=== PATIENT | female | born 1940 | race Caucasian/White ===

== ENCOUNTER 2019-03-01 17:40 | Inpatient (IN) | payer MEDICARE, OTHER ==
[2019-03-01 18:08] LABS: #Eosinphils 0.1 thou/uL (0.0-0.7); #Lymphocytes 1.9 thou/uL (1.20-3.40); #Monocytes 0.5 thou/uL (0.11-0.59); #Neutrophils 4.2 thou/uL (1.40-6.50); %Basophils 0.3 % (0.0-1.0); %Eosinophils 0.8 % (0.0-10.0); %Lymphocytes 28.8 % (21.0-51.0); %Neutrophils 62.1 % (42.0-75.0); Hemoglobin 12.2 g/dL (12.0-16.0); Mean Corpuscular HGB CONC 33.5 g/dL (32.0-36.0); Mean Corpuscular Hemoglobin 29.5 pg (27.0-31.0); Mean Platelet Volume 8.8 fL (7.4-10.4); Platelet Count 175 thou/uL (130-400); Red Blood Cell (RBC) Count 4.15 mill/uL (4.20-5.40); White Blood Cell (WBC) Count 6.7 thou/uL (4.8-10.8)
--- NOTE | 2019-03-01 18:20 | RAD ---
CHEST ONE VIEW: History: Shortness of breath. Dizziness. Comparison: None. FINDINGS: There are sternotomy wires. Atherosclerosis of the aorta. Upper normal cardiac silhouette. The pulmon teresa vessels are normal. Costophrenic angles are clear. Patchy interstitial opacities in the right inf rahilar region may represent infiltrate. Lungs are hyperinflated and chronic changes are suspected. N o pneumothorax or osseous abnormalities. IMPRESSION: 1. Upper normal cardiac silhouette. 2. Atherosclerosis. 3. Chronic changes of the superimposed infiltrate in the right infrahilar region. Continued surveilla nce is recommended. POS: ZORAIDA
[2019-03-01 18:30] LABS: ALT (SGPT) 47 U/L (8-55); AST (SGOT) 43 U/L (5-34); Albumin 4.1 g/dL (3.4-4.8); Alkaline Phosphatase 56 U/L (40-150); Anion Gap 14 mmol/L (10-20); BUN (Urea Nitrogen) 14 mg/dL (9.8-20.1); Bilirubin, Total 0.5 mg/dL (0.2-1.2); Calc. Creatinine Clearance 0 mL/min (70-130); Calcium 9.3 mg/dL (7.8-10.44); Carbon Dioxide 22 mmol/L (23-31); Chloride 102 mmol/L (98-107); Estimated GFR-MDRD 66; Globulin 2.5 g/dL (2.4-3.5); Glucose 147 mg/dL (83-110); Potassium 3.9 mmol/L (3.5-5.1); Protein, Total 6.6 g/dL (6.0-8.3); Sodium 134 mmol/L (136-145)
[2019-03-01] MEDS ORDERED: Nitroglycerin 2% Ointment 1 INCH/1 GM Packet ONE (18:31)
[2019-03-01] MEDS ORDERED: Aspirin Chewable 81 MG TAB ONE ×2 (18:53→19:02)
[2019-03-01 19:02] LABS: CKMB 1.3 ng/mL (0-6.6)
[2019-03-01] MEDS ORDERED: Furosemide 40 MG/4 ML VIAL ONE (20:18)
--- NOTE | 2019-03-01 20:57 | PDOC.FPRHP ---
- History of Present Illness Chief Complaint: Chest pain History of Present Illness: Ms. Otero presents to the ED with dizziness She reports that today she has frequently felt dizzy and lightheaded upon standing, improved when sitting or laying, associated with some GARCIA. She reports that she has had these symptoms for quite some time but only recently in the past 2-3 weeks have they become more frequent. [facility] similar complaints with medication changes including DCing digoxin and beginning scheduled lasix. She reports having US of carotids and Echo there along with other lab work and EKG. no stress test. She denies any chest pain, syncope, fever, palpitations, SOB, or edema recently ED Course: BNP, LA, trop, CBC, CXR, CMP, EKG Lasix, asa, nitro - Allergies/Adverse Reactions Allergies Allergy/AdvReac Type Severity Reaction Status Date / Time No Known Drug Allergies Allergy Verified 03/01/19 22:38 - Home Medications Medication Instructions Recorded Confirmed Type Aspirin [Ecotrin] 81 mg PO DAILY 03/01/19 03/01/19 History Fenofibrate 160 mg PO HS 03/01/19 03/01/19 History Furosemide [Lasix] 40 mg PO DAILY PRN 03/01/19 03/01/19 History Lisinopril 20 mg PO BID 03/01/19 03/01/19 History Sotalol HCl [Sotalol] 40 mg PO BID 03/01/19 03/01/19 History metFORMIN [Glucophage] 500 mg PO BID-WM 03/01/19 03/01/19 History - History PMHx:CAD, HTN, HLD, DMII PSHx: CABG in 1997 FHx: heart disease Social: former smoker, social alcohol, no drugs - Review of Systems General: denies: fever/chills Eyes: denies: vision changes Respiratory: reports: shortness of breath, exercise intolerance. denies: cough , congestion Cardiovascular: denies: chest pain, palpitation, edema Gastrointestinal: denies: nausea, vomiting, diarrhea, constipation Genitourinary: denies: dysuria Skin: denies: rashes, lesions Musculoskeletal: denies: pain, tenderness Neurological: reports: syncope. denies: numbness, weakness - Vital signs BP: 191/97, Pulse: 97, Resp: 20, Temp: 98.4 (Oral), Pain: 1, O2 sat: 97 on Room Air - Physical Exam Constitutional: NAD, awake, alert and oriented HEENT: normocephalic and atraumatic, grossly normal vision, grossly normal hearing Neck: supple, trachea midline, no bruits Chest: no-tender to palpation, no lesions Heart: normal S1/S2 (regularly irregular rhythm) Lungs: CTAB, no respiratory distress, no wheezing, no retractions Abdomen: soft, non-tender, bowel sounds present Musculoskeletal: normal structure, normal tone Neurological: no focal deficit, CN II-XII intact Skin: no rash/lesions Heme/Lymphatic: no unusual bruising or bleeding Psychiatric: normal mood and affect FMR H&P: Results - Labs Result Diagrams: 03/01/19 17:59 03/01/19 17:59 Lab results: WBC 6.7 thou/uL (4.8-10.8) 03/01/19 17:59 Hgb 12.2 g/dL (12.0-16.0) 03/01/19 17:59 Hct 36.5 % (36.0-47.0) 03/01/19 17:59 MCV 88.0 fL (78.0-98.0) 03/01/19 17:59 Plt Count 175 thou/uL (130-400) 03/01/19 17:59 Neutrophils % 62.1 % (42.0-75.0) 03/01/19 17:59 Sodium 134 mmol/L (136-145) L 03/01/19 17:59 Potassium 3.9 mmol/L (3.5-5.1) 03/01/19 17:59 Chloride 102 mmol/L (98-107) 03/01/19 17:59 Carbon Dioxide 22 mmol/L (23-31) L 03/01/19 17:59 BUN 14 mg/dL (9.8-20.1) 03/01/19 17:59 Creatinine 0.83 mg/dL (0.6-1.1) 03/01/19 17:59 Glucose 147 mg/dL (83-110) H 03/01/19 17:59 Lactic Acid 1.6 mmol/L (0.5-2.2) 03/01/19 18:33 Calcium 9.3 mg/dL (7.8-10.44) 03/01/19 17:59 Total Bilirubin 0.5 mg/dL (0.2-1.2) 03/01/19 17:59 AST 43 U/L (5-34) H 03/01/19 17:59 ALT 47 U/L (8-55) 03/01/19 17:59 Alkaline Phosphatase 56 U/L (40-150) 03/01/19 17:59 CK-MB (CK-2) 1.3 ng/mL (0-6.6) 03/01/19 18:00 B-Natriuretic Peptide 639.7 pg/mL (0-100) H 03/01/19 18:00 Serum Total Protein 6.6 g/dL (6.0-8.3) 03/01/19 17:59 Albumin 4.1 g/dL (3.4-4.8) 03/01/19 17:59 FMR H&P: A/P - Problem List (1) Pre-syncope Current Visit: Yes Status: Acute (2) Elevated brain natriuretic peptide (BNP) level Current Visit: Yes Status: Acute Code(s): R79.89 - OTHER SPECIFIED ABNORMAL FINDINGS OF BLOOD CHEMISTRY (3) CAD (coronary artery disease) Current Visit: Yes Status: Acute Code(s): I25.10 - ATHSCL HEART DISEASE OF [place] CORONARY ARTERY W/O ANG PCTRS (4) HTN (hypertension) Current Visit: Yes Status: Acute Code(s): I10 - ESSENTIAL (PRIMARY) HYPERTENSION (5) HLD (hyperlipidemia) Current Visit: Yes Status: Acute Code(s): E78.5 - HYPERLIPIDEMIA, UNSPECIFIED (6) DMII (diabetes mellitus, type 2) Current Visit: Yes Status: Acute (7) Elevated troponin Current Visit: Yes Status: Acute Code(s): R74.8 - ABNORMAL LEVELS OF OTHER SERUM ENZYMES - Plan Pre-syncope - VSS, neuro exam grossly intact, previous evaluation performed at outside hospital - request records, likely related to bigeminy - orthostatics pending indeterminate troponin - initially elevated, continue to monitor - EKG, nitro for chest pain - stress in AM Elevated BNP - CXR wnl, no exam abnormalities to suggest fluid overload - continue home lasix - reported recent echo, request records CAD - hx of, continue home medications HTN - controlled, continue home meds - hold sotalol for stress test DMII - continue home meds - SSI, ACHS accu-checks Code: full PCP: ADELIA ppx: bipin dispo: admit to tele obs for continuous cardiac monitoring, stress in AM. further eval pending records from outside hospital FMR H&P: Upper Level - Pertinent history 78 yo female here for dizziness, lightheadedness that started around lunch today. Was seen in the past couple weeks at [facility] for similar symptoms. Had head imaging was well as US of neck and heart, per patient. Recent medication change, stopping digoxin and starting lasix. Patient lives in [place] and is established in that area with physicians. Denies CP, syncope. - Pertinent findings 153/93 HR: 80 TEMP: 98.3 RR: 19 98% on RA Labs/imaging reviewed, trop 0.031; BNP 640 GEN: NAD, AOx3 CARD: irreg, no mgr PULM: CTAB EXT: no cyanosis or edema - Plan Date/Time: 03/01/192054 I, Brendan Mojica DO, have evaluated this patient and agree with findings/plan as outlined by university intern resident. Pertinent changes/additions are listed here. #near syncopal episode -sounds like she has had work up for this within the past 2 weeks -request records from that hospital -monitor on tele -based on history, there is concern for cardiac involvement, so we will trend trops and order stress test in the morning #bigeminy on EKG #elevated BMP -request records -no SOB at this time -continue home lasix and adjust as needed #CAD #HTN #DMII Addendum - Attending - Attending Attestation Date/Time: 03/01/19 2310 I personally evaluated the patient and discussed the management with Dr. Fowler and Dr. Mojica I agree with the History, Examination, Assessment and Plan documented above with any addition or exceptions noted below. 78 yo female with history of CAD presents for evaluation of pre-syncope. Patient with progressive dizziness and presyncope over the past month. Recently worked up at outside hospital. Has follow up visit scheduled with vascular surgeon. Will admit to tele obs. Noted to have arrhythmia on EKG. Patient unsure of history. Currently on beta solo. Asymptomatic at present. Records from outside hospital requested. Will order stress for AM. Patient confirmed this not done at outside facility. Consult cards in AM vs CV surg based on findings and records. Niki
[2019-03-01 21:29] LABS: Troponin I 0.027 ng/mL (< 0.028)
[2019-03-01] MEDS ORDERED: Ondansetron PF 4 MG/2 ML Vial IVP PRN (21:34)
[2019-03-01] MEDS ORDERED: Ondansetron ODT 4 MG TAB SL PRN (21:34)
[2019-03-01 21:45] VITALS: BMI 23.2
[2019-03-01] MEDS ORDERED: Nitroglycerin 0.4 MG TAB (25 Tab Bottle) PO PRN (21:55)
[2019-03-01] MEDS ORDERED: Acetaminophen 325 MG TAB PO PRN (21:55)
[2019-03-01] MEDS ORDERED: Dextrose 5% in Water 1,000 ML IV PRN (21:55)
[2019-03-01] MEDS ORDERED: HumaLOG 300 UNITS/3 ML VIAL SC PRN ×2 (21:55)
[2019-03-01] MEDS ORDERED: Dextrose 50% Abboject 50 ML SYRINGE SLOW IVP PRN (21:55)
[2019-03-01] MEDS ORDERED: Furosemide 40 MG TAB PO PRN (23:04)
[2019-03-01] MEDS ORDERED: Lisinopril 20 MG TAB PO SCH (23:59)
[2019-03-02 01:16] LABS: Troponin I 0.019 ng/mL (< 0.028)
[2019-03-02] MEDS ORDERED: ADENOSINE 60 MG/20 ML VIAL ONE (09:48)
--- NOTE | 2019-03-02 11:01 | NM ---
NM Cardiac Stress W EF WF History: [Chest pain] Comparison: None. Findings: Stress and rest was performed after the intravenous administration of 32 and 11 mCi technet ium 99m sestamibi, respectively. The exam was performed using the adenosine protocol. There is a large anteroseptal scar. No periscar ischemia. There is dyskinesia of the septum. Calculated ejection fraction measures 32%. Impression: Large anteroseptal scar without margaux-infarct ischemia. Septal dyskinesia with calculated ejection fraction of 32%.
[2019-03-02] MEDS ORDERED: hydrALAZINE 20 MG/ML VIAL SLOW IVP PRN (11:31)
[2019-03-02] MEDS ORDERED: hydrALAZINE 20 MG/ML VIAL SLOW IVP SCH (11:45)
[2019-03-02] MEDS: Enoxaparin Sodium 40 MG/0.4 ML SYRINGE SC SCH (11:50)
[2019-03-02] MEDS: metFORMIN 500 MG TAB PO SCH ×2 (11:50→17:09)
[2019-03-02] MEDS: Aspirin 81 mg Enteric Coated Tablet PO SCH (11:50)
[2019-03-02] MEDS: Lisinopril 20 MG TAB PO SCH ×2 (11:50→20:55)
--- NOTE | 2019-03-02 11:51 | PDOC.FM ---
- Subjective Subjective: PRABHAKAR overnight. Pt reports she is not having any CP, SOB. Does report persistent dizziness that improves when lying down. She had a stress this am that showed akinesis of septum and estimated EF of 32%. She remains in bigeminy. Denies palpitations. - Objective MAR Reviewed: Yes Vital Signs & Weight: Vital Signs (12 hours) Temp Pulse Resp BP BP BP Pulse Ox 03/02/19 11:04 97.8 F 94 171/79 H 221/109 H 197/79 H 97 03/02/19 04:18 96 03/02/19 04:15 98.0 F 94 14 162/85 H 190/61 H 143/83 H 94 L Weight Weight 54.295 kg I&O: 03/01/19 03/02/19 03/03/19 06:59 06:59 06:59 Intake Total 390 Output Total 1000 Balance -610 Result Diagrams: 03/06/19 04:33 03/06/19 04:33 Phys Exam - Physical Examination Constitutional: NAD HEENT: PERRLA, sclera anicteric Neck: no nodes, no JVD Respiratory: no wheezing, no rales, no rhonchi, clear to auscultation bilateral Cardiovascular: no rub, irregular NERI 3/6 Gastrointestinal: soft, non-tender, positive bowel sounds Musculoskeletal: no edema, pulses present Neurological: non-focal, moves all 4 limbs Skin: no rash Dx/Plan (1) Pre-syncope Status: Acute (2) CAD (coronary artery disease) Code(s): I25.10 - ATHSCL HEART DISEASE OF [place] CORONARY ARTERY W/O ANG PCTRS Status: Acute (3) DMII (diabetes mellitus, type 2) Status: Acute (4) Elevated brain natriuretic peptide (BNP) level Code(s): R79.89 - OTHER SPECIFIED ABNORMAL FINDINGS OF BLOOD CHEMISTRY Status : Acute (5) HLD (hyperlipidemia) Code(s): E78.5 - HYPERLIPIDEMIA, UNSPECIFIED Status: Acute (6) HTN (hypertension) Code(s): I10 - ESSENTIAL (PRIMARY) HYPERTENSION Status: Acute - Plan Plan: Pre-syncope - records pending - orthostatics negative - Stress showe scar and some akinesis - cardiology has been consulted - awaiting records from [facility] with recent echo results indeterminate troponin - down trended Elevated BNP - CXR wnl, no exam abnormalities to suggest fluid overload - continue home lasix - echo results pending - stress ef estimated @ 32% CAD - hx of, continue home medications HTN - elevated - hydralazine added prn - give one time hydralazine this am DMII - continue home meds - SSI, ACHS accu-checks Code: full PCP: OOT ppx: lovenox dispo: Cont monitoring and consult cardiology. Await recommendations. Addendum - Attending - Attending Attestation Date/Time: 03/08/19 0718 I personally evaluated the patient and discussed the management with Dr. Avalos on 03/02/19. I agree with the History, Examination, Assessment and Plan documented above with any addition or exceptions noted below. No pre-syncopal symptoms. Continues in bigeminy. Awaiting records to determine if further intervention needed. If they don't arrive, Cards may expedite our own w/u.
--- NOTE | 2019-03-02 17:15 | EKG ---
Test Reason : Blood Pressure : / mmHG Vent. Rate : 088 BPM Atrial Rate : 088 BPM P-R Int : 196 ms QRS Dur : 128 ms QT Int : 386 ms P-R-T Axes : 003 -59 120 degrees QTc Int : 467 ms Sinus rhythm with frequent Premature ventricular complexes in a pattern of bigeminy Left ventricular hypertrophy with QRS widening and repolarization abnormality Anterolateral infarct (cited on or before 01-MAR-2019) Abnormal ECG When compared with ECG of 01-MAR-2019 18:07, (Unconfirmed) No significant change was found Confirmed by DR. Lachelle WILLIS ([id number]) on 03/02/2019 5:14:56 PM Referred By: BILLY HALE Confirmed By:DR. Lachelle WILLIS
--- NOTE | 2019-03-02 20:10 | CON ---
DATE OF CONSULTATION: REASON FOR CONSULTATION: Abnormal stress study. HISTORY OF PRESENT ILLNESS: Ms. Otero is a pleasant 78-year-old woman with previous history of underlying coronary artery disease. She states she had an MA in the late 90s. She underwent bypass surgery. She has been worked up for dizziness as an outpatient. She states she was passing through when developed dizziness. Her fha underwriter is in [place]. She was subsequently admitted. She was having bigeminy. She underwent a noninvasive stress study that showed a scar with no ischemia present. Scar was noted to the anteroseptal region with LVEF 32%. She states she has not been told in the past she had a cardiomyopathy, although states after her heart attack she had a large area of scar that did have a healed prior to proceeding with bypass surgery. PAST MEDICAL HISTORY: CAD, status post MA, hypertension, hyperlipidemia, and diabetes mellitus. SOCIAL HISTORY: No current tobacco or alcohol use. FAMILY HISTORY: Negative for CAD. HOME MEDICATIONS: 1. Sotalol. 2. Metformin. 3. Lisinopril. 4. Lasix. 5. Fenofibrate. 6. Aspirin. REVIEW OF SYSTEMS: A 10-point review of systems is reviewed and as well negative. PHYSICAL EXAMINATION: VITAL SIGNS: Blood pressure 166/104, pulse 52, and temp 99.1. GENERAL: Patient is a pleasant female who is in no acute distress. The patient appears their stated age. NEUROLOGIC: The patient is alert and oriented x3 with no focal neurologic deficits. HEENT: Sclerae without icterus. Mouth has moist mucous membranes with normal pallor. NECK: No JVD. Carotid upstroke brisk. No bruits bilaterally. LUNGS: Clear to auscultation with unlabored respirations. BACK: No scoliosis or kyphosis. CARDIAC: Regular rate and rhythm with normal S1 and S2. No S3 or S4 noted. No significant rubs, murmurs, thrills, or gallops noted throughout the precordium. PMI is not displaced. There is no parasternal heave. ABDOMEN: Soft, nontender, nondistended. No peritoneal signs present. No hepatosplenomegaly. No abnormal striae. EXTREMITIES: 2+ femoral and 2+ dorsalis pedis pulses. No cyanosis, clubbing, or edema. SKIN: No gross abnormalities. PERTINENT LABORATORY DATA: Hemoglobin 12.2. Troponin 0.027. IMPRESSION: 1. Dizziness. 2. Coronary artery disease. 3. Status post bypass surgery. 4. Abnormal stress study. RECOMMENDATIONS: Ms. Otero's symptoms may be related to a PVCs. She is currently on sotalol. We will try and obtain previous records. Her LVEF is estimated at 32%, but likely underestimated due to PVCs. She is currently asymptomatic. We cannot obtain past records, would then recommend an echo Doppler to assess LVEF. May consider stopping sotalol. Job ID: [id number]
[2019-03-02] MEDS: Sotalol HCl 80 MG TAB PO SCH (20:54)
[2019-03-02] MEDS: Fenofibrate Nanocrystallized 145 MG TAB PO SCH (20:55)
--- NOTE | 2019-03-03 06:18 | PDOC.CTH ---
Cardiology Progress Note - Subjective No complaints except dizziness noted. - Objective Vital Signs Temp Pulse Resp BP BP BP Pulse Ox 03/03/19 03:57 97.8 F 80 16 156/65 H 94 L 03/03/19 00:53 118/62 03/02/19 23:34 99.3 F 94 20 185/75 H 96 03/02/19 20:55 158/98 H 03/02/19 20:54 98 158/98 H 03/02/19 20:00 99.1 F 98 16 158/98 H 96 Weight 123 lb 9.6 oz 03/01/19 03/02/19 03/03/19 06:59 06:59 06:59 Intake Total 390 840 Output Total 1000 200 Balance -610 640 - Physical Examination General/Neuro: alert & oriented x3, NAD Neck: carotid US brisk, no JVD present Lungs: unlabored respirations Heart: PMI normal, RRR Abdomen: NT/ND, soft Extremities: + femoral B - Telemetry Telemetry Rhythm: bigeminy - Labs Result Diagrams: 03/01/19 17:59 03/01/19 17:59 Troponin/CKMB CK-MB (CK-2) 1.3 ng/mL (0-6.6) 03/01/19 18:00 Troponin I 0.019 ng/mL (< 0.028) 03/02/19 00:30 - Assessment/Plan Dizziness CAD s/p CABG Bigeminy Check outside echo Will discuss stopping sotalol and changing to amiodarone with EP vs ablation Recommend EP consult givne symptoms and continuos bigeminy
[2019-03-03] MEDS: Sotalol HCl 80 MG TAB PO SCH ×2 (09:11→19:35)
[2019-03-03] MEDS: Aspirin 81 mg Enteric Coated Tablet PO SCH (09:11)
[2019-03-03] MEDS: Lisinopril 20 MG TAB PO SCH ×2 (09:11→19:35)
[2019-03-03] MEDS: Enoxaparin Sodium 40 MG/0.4 ML SYRINGE SC SCH (09:12)
[2019-03-03] MEDS: metFORMIN 500 MG TAB PO SCH ×2 (09:12→17:44)
--- NOTE | 2019-03-03 11:10 | PDOC.FM ---
- Subjective Subjective: PRABHAKAR overnight. Pt reports persistent episodic dizziness. Remains in bigeminy. - Objective MAR Reviewed: Yes Vital Signs & Weight: Vital Signs (12 hours) Temp Pulse Resp BP BP BP BP 03/03/19 09:11 56 L 118/62 03/03/19 07:30 97.6 F 56 L 14 120/85 134/66 03/03/19 03:57 97.8 F 80 16 156/65 H 03/03/19 00:53 118/62 03/02/19 23:34 99.3 F 94 20 185/75 H BP Pulse Ox 03/03/19 09:11 03/03/19 07:30 127/61 96 03/03/19 03:57 94 L 03/03/19 00:53 03/02/19 23:34 96 Weight Weight 56.064 kg I&O: 03/02/19 03/03/19 03/04/19 06:59 06:59 06:59 Intake Total 390 840 240 Output Total 1000 200 Balance -610 640 240 Result Diagrams: 03/04/19 06:19 03/04/19 06:19 Phys Exam - Physical Examination Constitutional: NAD HEENT: PERRLA, sclera anicteric Neck: no nodes, no JVD Respiratory: no wheezing, no rales, no rhonchi, clear to auscultation bilateral Cardiovascular: no significant murmur, irregular Gastrointestinal: soft, non-tender, no distention, positive bowel sounds Musculoskeletal: no edema, pulses present Neurological: non-focal, moves all 4 limbs Psychiatric: normal affect Skin: no rash, normal turgor Dx/Plan (1) Pre-syncope Status: Acute (2) CAD (coronary artery disease) Code(s): I25.10 - ATHSCL HEART DISEASE OF [place] CORONARY ARTERY W/O ANG PCTRS Status: Acute (3) DMII (diabetes mellitus, type 2) Status: Acute (4) Elevated brain natriuretic peptide (BNP) level Code(s): R79.89 - OTHER SPECIFIED ABNORMAL FINDINGS OF BLOOD CHEMISTRY Status : Acute (5) HLD (hyperlipidemia) Code(s): E78.5 - HYPERLIPIDEMIA, UNSPECIFIED Status: Acute (6) HTN (hypertension) Code(s): I10 - ESSENTIAL (PRIMARY) HYPERTENSION Status: Acute - Plan Plan: Pre-syncope - records pending - orthostatics negative - Stress showe scar and some akinesis - cardiology has been consulted - awaiting records from [facility] with recent echo results which have unfortunately not arrived, as such will order echo - EP consulted per cardiology, will await recs indeterminate troponin resolved - down trended Elevated BNP - CXR wnl, no exam abnormalities to suggest fluid overload - continue home lasix - echo ordered in house - stress ef estimated @ 32% CAD - hx of, continue home medications HTN - elevated - hydralazine added prn - give one time hydralazine this am - sotalol continued DMII - continue home meds - SSI, ACHS accu-checks Code: full PCP: OOT ppx: lovenox dispo: Cont monitoring and await EP recs. Addendum - Attending - Attending Attestation Date/Time: 03/04/19 2157 I personally evaluated the patient and discussed the management with Dr. Avalos. I agree with the History, Examination, Assessment and Plan documented above with any addition or exceptions noted below. No cp/sob/n/v/f/c.
[2019-03-03] MEDS ORDERED: Polyethylene Glycol 3350 17 GM Packet PO PRN (18:16)
[2019-03-03] MEDS ORDERED: Senokot 8.6 MG TAB PO PRN (18:16)
[2019-03-03] MEDS ORDERED: Polyethylene Glycol 3350 17 GM Packet PO SCH (18:20)
[2019-03-03] MEDS: Fenofibrate Nanocrystallized 145 MG TAB PO SCH (19:35)
--- NOTE | 2019-03-03 22:13 | CON ---
DATE OF CONSULTATION: 03/03/2019 I am seeing Mrs. 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 Her problems are, 1. Near syncopal spell. 2. Nonsustained ventricular tachycardia with very frequent monomorphic premature ventricular contractions as well. 3. Chronic systolic congestive heart failure with ischemic cardiomyopathy. a. Remote history of silent myocardial infarction. b. History of cardiomyopathy, even pre and post bypass surgery. c. History of coronary artery bypass graft surgery in 1997. d. Current left ventricular ejection fraction at 32% by echocardiogram this admission. 4. Hypertension. 5. Hyperlipidemia. 6. Mild diabetes. 7. Chronic sotalol use. ALLERGIES: NONE NOTED. MEDICATIONS: At home, included: 1. Sotalol 40 mg twice a day. 2. Metformin. 3. Lisinopril. 4. Furosemide. 5. Fenofibrate. 6. Aspirin. SUBJECTIVE: Mrs. Otero is here after a dizzy spell. She was visiting town from [place] where she lives and got dizzy, lightheaded, and also had some dyspnea on exertion. She actually had DOA for 2 to 3 weeks, but recurring more frequent recently. She had recently discharged from [facility] for similar complaints, and she was started on Lasix. She denies passing out. She actually denies any chest pains. No fever, chills , or cough. No stroke-like symptoms. No neurological deficits. There is no PND or orthopnea. Rest of 12-point system otherwise unremarkable. PAST MEDICAL HISTORY: As above. SOCIAL HISTORY: The patient denies smoking, EtOH, or drug abuse. She lives in near [place] in [place]. FAMILY HISTORY: Negative for coronary artery disease. OBJECTIVE DATA: VITAL SIGNS: Blood pressure mostly 171/68, heart rate 80, respirations 20, and temperature 97.8 degrees Fahrenheit. PHYSICAL EXAMINATION: GENERAL: Alert and oriented woman, in no apparent distress. NECK: Supple. Jugular vein is slightly distended. Hepatojugular reflux is positive. CHEST: Coarse without crackles. HEART: Sounds are regular with occasional bigeminal ectopy heard. No murmur, but positive for S3 gallop. ABDOMEN: Benign. Bowel sounds positive. LOWER EXTREMITIES: Without edema, clubbing, or cyanosis. Pulses are adequate. NEUROLOGIC: The patient is nonfocal. MUSCULOSKELETAL: No joint swelling or deformity. SKIN: Without rash. DATABASE: EKG is reviewed. Initial EKG reveals sinus rhythm, rate of 96 beats per minute. QRS is narrow about 120 milliseconds. Frequent PVCs are noted, which are right bundle and left axis in morphology. Subsequent EKG is similar. Telemetry strips revealed frequent bigeminy and ectopy. LABORATORY DATA: White count 6.7, hemoglobin is 12.2, and platelet count is 175. Sodium 134, potassium 3.9, BUN is 14, and creatinine 0.83. AST and ALT are 43 and 47. Troponin I 0.031. BNP 639. The nuclear stress test from 03/19/2019, demonstrates LVEF 32%, large anteroseptal scar without ischemia, septal dyskinesia. ASSESSMENT AND PLAN: Mrs. Otero is a pleasant 78-year-old woman with history of congestive heart failure, likely ischemic cardiomyopathy, prior CABG and DC, who presented with progressive dizziness for which etiology is unclear, but she was noted to have very frequent premature ventricular contractions as well as runs of fast rapid heartbeats, considering ventricular tachycardia as noted. The premature ventricular contractions and medical tachycardia are different in morphology and also from the baseline. She also has mild fluid overload. She is taking p.o. diuretics for that. Her dizzy spell could be related to ventricular arrhythmias. By nuclear scan, she does not seem to have new ischemia, but a large anteroseptal scar is present, which is likely chronic, possibly harbors circuits for ventricular arrhythmia. We obtained records from [facility] where she was recently hospitalized. The echocardiogram was suggestive of [id number] Will obtain redo ECHO to evaluate LVEF. IF worsened to <=35% she may benefit from a pacemaker-defibrillator. IF LVEF35- 40%, may consider elctrophysiology study. Also, the frequent ventricular ectopy may be better served with further suppression with higher doise of sotalol after the ICD is in place. Alternatively, premature ventricular contraction ablation also could be considered, which could possibly improve her left ventricular systolic function as well. I discussed the case with dr Aguayo, who is planning an [facility] to re-evaluate coronary status. Job ID: [id number] [facility]
[2019-03-04] MEDS ORDERED: Sodium Chloride 0.9% 1,000 ML IV SCH (06:15)
[2019-03-04] MEDS ORDERED: Diazepam 5 MG TAB PO SCH (06:15)
[2019-03-04] MEDS ORDERED: Communication Order-Pharmacy FS SCH (06:15)
[2019-03-04] MEDS: Sotalol HCl 80 MG TAB PO SCH ×2 (06:24→20:22)
[2019-03-04 07:10] LABS: #Lymphocytes 1.5 thou/uL (1.20-3.40); #Monocytes 1.1 thou/uL (0.11-0.59); #Neutrophils 5.7 thou/uL (1.40-6.50); %Basophils 0.1 % (0.0-1.0); %Eosinophils 0.4 % (0.0-10.0); %Lymphocytes 17.5 % (21.0-51.0); %Monocytes 12.8 % (0.0-10.0); %Neutrophils 69.2 % (42.0-75.0); Hemoglobin 12.7 g/dL (12.0-16.0); Mean Corpuscular HGB CONC 34.2 g/dL (32.0-36.0); Mean Corpuscular Hemoglobin 29.9 pg (27.0-31.0); Mean Corpuscular Volume 87.4 fL (78.0-98.0); Platelet Count 176 thou/uL (130-400); RBC Distribution Width 13.7 % (11.5-14.5); Red Blood Cell (RBC) Count 4.25 mill/uL (4.20-5.40); White Blood Cell (WBC) Count 8.3 thou/uL (4.8-10.8)
[2019-03-04 07:35] LABS: ALT (SGPT) 22 U/L (8-55); AST (SGOT) 12 U/L (5-34); Albumin 3.8 g/dL (3.4-4.8); Alkaline Phosphatase 47 U/L (40-150); Anion Gap 12 mmol/L (10-20); BUN (Urea Nitrogen) 12 mg/dL (9.8-20.1); Bilirubin, Total 0.7 mg/dL (0.2-1.2); Calc. Creatinine Clearance 57 mL/min (70-130); Calcium 9.2 mg/dL (7.8-10.44); Carbon Dioxide 23 mmol/L (23-31); Chloride 105 mmol/L (98-107); Estimated GFR-MDRD 82; Globulin 2.6 g/dL (2.4-3.5); Glucose 128 mg/dL (83-110); Potassium 3.8 mmol/L (3.5-5.1); Protein, Total 6.4 g/dL (6.0-8.3); Sodium 136 mmol/L (136-145)
[2019-03-04] MEDS: metFORMIN 500 MG TAB PO SCH ×2 (08:16→17:39)
[2019-03-04] MEDS: Enoxaparin Sodium 40 MG/0.4 ML SYRINGE SC SCH (08:17)
[2019-03-04] MEDS: Aspirin 81 mg Enteric Coated Tablet PO SCH (08:17)
[2019-03-04] MEDS: Lisinopril 20 MG TAB PO SCH ×2 (08:17→20:22)
[2019-03-04] MEDS ORDERED: Fentanyl 100 MCG/2 ML VIAL ONE (09:01)
[2019-03-04] MEDS ORDERED: Midazolam HCl 2 mg/2 ml Vial ONE (09:01)
--- NOTE | 2019-03-04 09:05 | PDOC.FM ---
- Subjective Subjective: PRABHAKAR overnight. Pt remains in bigeminy. She denies overnight CP, dizziness, lighthededness, sob, NVDC, diaphoresis. - Objective MAR Reviewed: Yes Vital Signs & Weight: Vital Signs (12 hours) Temp Pulse Resp BP BP Pulse Ox 03/04/19 08:17 118/62 03/04/19 07:57 98.5 F 82 16 100/57 L 94 L 03/04/19 03:25 97.8 F 94 20 149/71 H 93 L Weight Weight 54.516 kg I&O: 03/03/19 03/04/19 03/05/19 06:59 06:59 06:59 Intake Total 840 1340 Output Total 200 Balance 640 1340 Result Diagrams: 03/04/19 06:03/04/19 06:19 Phys Exam - Physical Examination Constitutional: NAD HEENT: PERRLA, moist MMs, sclera anicteric Neck: no nodes, no JVD Respiratory: no wheezing, no rales, no rhonchi, clear to auscultation bilateral Cardiovascular: RRR, no significant murmur, no rub Gastrointestinal: soft, non-tender, no distention, positive bowel sounds Musculoskeletal: no edema, pulses present Neurological: non-focal, normal sensation, moves all 4 limbs Psychiatric: normal affect Skin: no rash, cap refill <2 seconds Dx/Plan (1) Pre-syncope Status: Acute (2) CAD (coronary artery disease) Code(s): I25.10 - ATHSCL HEART DISEASE OF [place] CORONARY ARTERY W/O ANG PCTRS Status: Acute (3) DMII (diabetes mellitus, type 2) Status: Acute (4) Elevated brain natriuretic peptide (BNP) level Code(s): R79.89 - OTHER SPECIFIED ABNORMAL FINDINGS OF BLOOD CHEMISTRY Status : Acute (5) HLD (hyperlipidemia) Code(s): E78.5 - HYPERLIPIDEMIA, UNSPECIFIED Status: Acute (6) HTN (hypertension) Code(s): I10 - ESSENTIAL (PRIMARY) HYPERTENSION Status: Acute - Plan Plan: Pre-syncope - cardiogenic - pt to have cath this am and placement of ICD pending cath results indeterminate troponin resolved - down trended - see above Elevated BNP - CXR wnl, no exam abnormalities to suggest fluid overload - continue home lasix - echo ordered in house - stress ef estimated @ 32% - pending cath this am CAD - hx of, continue home medications HTN - monitor - cardiology consulted - cont home medications DMII - continue home meds - SSI, ACHS accu-checks Code: full PCP: OOT ppx: reenox dispo: Cont monitoring await cath results and cards/EP recs. Addendum - Attending - Attending Attestation Date/Time: 03/04/19 4297 I personally evaluated the patient and discussed the management with Dr. Avalos. I agree with the History, Examination, Assessment and Plan documented above with any addition or exceptions noted below. I'm seeing her post-cath and she is doing well, no complaints of cp/sob/palps/n/ v/f/c or groin pain.
[2019-03-04] MEDS ORDERED: Sodium Chloride 0.9% 200 ML IV PRN (09:36)
[2019-03-04] MEDS ORDERED: Nitroglycerin 0.4 MG TAB (25 Tab Bottle) SL PRN (09:36)
[2019-03-04] MEDS ORDERED: Acetaminophen/Codeine 30-300mg Tablet PO PRN ×2 (09:36)
[2019-03-04] MEDS ORDERED: Iopamidol 370 76% 100 ML VIAL ONE (09:49)
[2019-03-04] MEDS: Sodium Chloride 0.9% 1,000 ML IV SCH ×2 (10:10→17:39)
--- NOTE | 2019-03-04 14:49 | PDOC.CTH ---
Cardiology Progress Note - Subjective EP PROGRESS NOTE: 03/04/19 Mrs. Otero presented to [facility] after a dizzy spell. She was visiting from [place] where she lives and got dizzy, lightheaded, and also had some dyspnea on exertion. She actually had DOA for 2 to 3 weeks, but recurring more frequent recently. She had recently discharged from [facility] for similar complaints, and she was started on Lasix. She denies heart racing, palpitations, chest pain/pressure, recurrent dizziness , pasingout. No fever, chills, or cough. No stroke-like symptoms. No neurological deficits. There is no PND or orthopnea. Rest of 12-point system otherwise unremarkable. - Objective Vital Signs Temp Pulse Resp BP BP Pulse Ox 03/04/19 12:00 97.7 F 82 16 133/65 94 L 03/04/19 08:17 118/62 03/04/19 08:00 94 L 03/04/19 07:57 98.5 F 82 16 100/57 L 94 L 03/04/19 03:25 97.8 F 94 20 149/71 H 93 L Weight 120 lb 3 oz 03/03/19 03/04/19 03/05/19 06:59 06:59 06:59 Intake Total 840 1340 Output Total 200 Balance 640 1340 - Physical Examination General/Neuro: alert & oriented x3, NAD Neck: carotid US brisk, no JVD present Lungs: CTA, unlabored respirations Heart: PMI normal, RRR, other: (frequent PVC) Abdomen: NT/ND, soft - Telemetry Telemetry Rhythm: SR frequent PVC - Labs Result Diagrams: 03/04/19 06:19 03/04/19 06:19 Troponin/CKMB CK-MB (CK-2) 1.3 ng/mL (0-6.6) 03/01/19 18:00 Troponin I 0.019 ng/mL (< 0.028) 03/02/19 00:30 - Assessment/Plan 1. Near syncopal spell. 2. Nonsustained ventricular tachycardia with very frequent monomorphic premature ventricular contractions as well. 3. Chronic systolic congestive heart failure with ischemic cardiomyopathy. a. Remote history of silent myocardial infarction. b. History of cardiomyopathy, even pre and post bypass surgery. c. History of coronary artery bypass graft surgery in 1997. d. Current left ventricular ejection fraction at 32% by echocardiogram this admission. 4. Hypertension. 5. Hyperlipidemia. 6. Mild diabetes. 7. Chronic sotalol use. - low dose, 40mg PO BID - Creat clearance 57mL/min (creat 0.69) -QT/QTc 354/447 ms by 12 lead on 03/01/19 Plan: C done today. Recommendation was for medical management. Awaiting report. Repeat Echo taken but awaiting report. If EF borderline, 35-40%, my plan is for EP study to see if she is inducible for ventricular arrhythmias and place Dual chamber ICD if she is. If EF severely reduced, <35%, recommend dual chamber ICD implant. Will await results as mentioned. She is scheduled for Saturday either way. 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 She may eventually require PVC/VT ablation which can be discussed/arranged as OP.
[2019-03-04] MEDS: Fenofibrate Nanocrystallized 145 MG TAB PO SCH (20:22)
[2019-03-05 00:32] LABS: Anion Gap 14 mmol/L (10-20); BUN (Urea Nitrogen) 8 mg/dL (9.8-20.1); Calc. Creatinine Clearance 58 mL/min (70-130); Calcium 9.2 mg/dL (7.8-10.44); Carbon Dioxide 19 mmol/L (23-31); Chloride 107 mmol/L (98-107); Estimated GFR-MDRD 83; Glucose 126 mg/dL (83-110); Potassium 4.1 mmol/L (3.5-5.1); Sodium 136 mmol/L (136-145)
--- NOTE | 2019-03-05 00:57 | PDOC.EVN ---
Event Note - Event Note Event Note: Subjective: Paged by nursing staff around midnight that patient was complaining of SOB. She had a cath procedure today and plan for ICD placement on Saturday. Her sats were reported to be 94% on RA. Residents went to evaluate patient who endorsed SOB that began earlier this afternoon and had gotten progressively worse. She also endorsed feeling like she was wheezing. She denied fever/chills , chest pain, palpitations or abdominal pain. Denies LE edema. ROS: per HPI Objective: Vitas: T: 97.7, HR: 82, RR: 16, O2 sats: 94% RA, BP: 133/65 PE: General: NAD, awake, alert, and oriented Cardio: RRR, no murmurs, rubs, or gallops Resp: CTAB, non labored breathing, no retractions Abd: non tender, non distended, + BS MSK: no swelling to LE A&P: - Ordered BNP, BMP, and CXR - BNP elevated from previously, CXR showing inc pulm vascular congestion - Will give one dose of lasix, 40mg IV
[2019-03-05] MEDS ORDERED: Furosemide 40 MG/4 ML VIAL SLOW IVP SCH (01:00)
[2019-03-05 03:18] LABS: Troponin I 0.014 ng/mL (< 0.028)
--- NOTE | 2019-03-05 06:13 | PDOC.CTH ---
Cardiology Progress Note - Objective Vital Signs Temp Pulse Resp BP Pulse Ox 03/05/19 04:00 98.1 F 102 H 20 138/67 93 L 03/05/19 02:48 95 03/04/19 19:35 98.1 F 90 18 127/70 95 Weight 122 lb 1 oz 03/03/19 03/04/19 03/05/19 06:59 06:59 06:59 Intake Total 840 1340 2125 Output Total 200 2700 Balance 640 1340 -575 - Physical Examination General/Neuro: NAD Neck: no JVD present Lungs: CTA, unlabored respirations Heart: PMI normal, RRR Abdomen: NT/ND, soft Extremities: + femoral B - Labs Result Diagrams: 03/04/19 06:19 03/05/19 00:06 Troponin/CKMB CK-MB (CK-2) 1.3 ng/mL (0-6.6) 03/01/19 18:00 Troponin I 0.014 ng/mL (< 0.028) 03/05/19 00:06 - Assessment/Plan Dizziness Bradycarida VT Severe CAD Pt with occluded LAD and severe stneosis of the subclavian artery occluded lad likely occurred in the [place] support measures EP planning on study tomorrow
--- NOTE | 2019-03-05 07:27 | RAD ---
XR Chest 1 View Portable History: [Shortness of breath] Comparison: Radiograph March 01, 2019 Findings: Pulmonary edema mildly improved. Heart size is normal. No pneumothorax. No significant effu antonio. No acute osseous abnormality. Ends calcifications of the aorta. Impression: Minimal significant improvement of pulmonary edema.
[2019-03-05] MEDS: Sotalol HCl 80 MG TAB PO SCH ×2 (10:19→22:06)
[2019-03-05] MEDS: metFORMIN 500 MG TAB PO SCH ×2 (10:20→18:08)
[2019-03-05] MEDS: Aspirin 81 mg Enteric Coated Tablet PO SCH (10:20)
[2019-03-05] MEDS: Enoxaparin Sodium 40 MG/0.4 ML SYRINGE SC SCH (10:20)
[2019-03-05] MEDS: Lisinopril 20 MG TAB PO SCH ×2 (10:20→22:05)
--- NOTE | 2019-03-05 10:42 | PDOC.FM ---
- Subjective Subjective: Pt developed SOB overnight. Had BNP that was elevated and CXR concerning for volume overload. Given IV lasix and symptoms resolved. This am she reports she feels great. IVF stopped. - Objective MAR Reviewed: Yes Vital Signs & Weight: Vital Signs (12 hours) Temp Pulse Resp BP BP BP Pulse Ox 03/05/19 10:20 118/62 03/05/19 10:19 108 H 03/05/19 10:17 96 03/05/19 08:23 97.6 F 108 H 16 127/61 96 03/05/19 04:00 98.1 F 102 H 20 138/67 93 L 03/05/19 02:48 95 Weight Weight 55.367 kg I&O: 03/04/19 03/05/19 03/06/19 06:59 06:59 06:59 Intake Total 1340 2125 Output Total 2700 Balance 1340 -575 Result Diagrams: 03/04/19 06:19 03/05/19 00:06 Phys Exam - Physical Examination Constitutional: NAD HEENT: PERRLA, sclera anicteric Neck: no nodes, no JVD Respiratory: no wheezing, no rales, no rhonchi, clear to auscultation bilateral Cardiovascular: no significant murmur, irregular Gastrointestinal: soft, non-tender, no distention, positive bowel sounds Musculoskeletal: no edema, pulses present Neurological: non-focal, moves all 4 limbs Psychiatric: normal affect Skin: no rash Dx/Plan (1) Pre-syncope Status: Acute (2) CAD (coronary artery disease) Code(s): I25.10 - ATHSCL HEART DISEASE OF [place] CORONARY ARTERY W/O ANG PCTRS Status: Acute (3) DMII (diabetes mellitus, type 2) Status: Acute (4) Elevated brain natriuretic peptide (BNP) level Code(s): R79.89 - OTHER SPECIFIED ABNORMAL FINDINGS OF BLOOD CHEMISTRY Status : Acute (5) HLD (hyperlipidemia) Code(s): E78.5 - HYPERLIPIDEMIA, UNSPECIFIED Status: Acute (6) HTN (hypertension) Code(s): I10 - ESSENTIAL (PRIMARY) HYPERTENSION Status: Acute - Plan Plan: Pre-syncope - cardiogenic - await EP and cardiology recommendations indeterminate troponin resolved -resolved Elevated BNP -Ech showed EF 30-35%, pt will undergo EP prcedure today or tomorrow, will await recs - will need optimum medical therapy PT DC, await EP prcedure/recs CAD - hx of, continue home medications HTN - monitor - cardiology consulted - cont home medications DMII - continue home meds - SSI, ACHS accu-checks Code: full PCP: ADELIA ppx: bipin dispo: Will await cardiology and EP recs, plan for EP prcedure today vs tomorrow. Addendum - Attending - Attending Attestation Date/Time: 03/05/19 3118 I personally evaluated the patient and discussed the management with Dr. Avalos. I agree with the History, Examination, Assessment and Plan documented above with any addition or exceptions noted below.
--- NOTE | 2019-03-05 13:13 | STRESS ---
Acquisition Time: 2019-03-02 09:13:50 Total Exercise Time: 00:04:00 Test Indications: CHEST PAIN Medications: Protocol: ADENOSINE Max HR: 098 BPM 69% of Pred: 141 BPM Max BP: 172/064 mmHG Max Work Load: 1.0 METS RESTING ECG: NORMAL SINUS RHYTHM AT 91 BPM WITH LEFT ANTERIOR FASCICULAR BLOCK, OLD ANTEROSEPTAL W[place], AND FREQUENT PVC'S SYMPTOMS: DYSPNEA NORMAL BP RESPONSE ECTOPY: FREQUENT PVC'S ECG STRESS: NO SIGNIFICANT CHANGES INTERPRETATION: INDETERMINATE ECG/AWAIT NUCLEAR IMAGES FOR DEFINITIVE DIAGNOSIS Confirmed by ANDREE MAHAJAN ([id number]) on 03/05/2019 1:13:00 PM Referred By: DO Ricky SPANN Confirmed By:ANDREE MAHAJAN
--- NOTE | 2019-03-05 16:35 | PDOC.CTH ---
Cardiology Progress Note - Subjective EP PROGRESS NOTE: 03/05/19 Mrs. Otero presented to [facility] after a dizzy spell. She was visiting from [place] where she lives and got dizzy, lightheaded, and also had some dyspnea on exertion. She actually had DOA for 2 to 3 weeks, but recurring more frequent recently. She had recently discharged from [facility] for similar complaints, and she was started on Lasix. She denies heart racing, palpitations, chest pain/pressure, recurrent dizziness , pasingout. No fever, chills, or cough. No stroke-like symptoms. No neurological deficits. There is no PND or orthopnea. Rest of 12-point system otherwise unremarkable. She is feeling more energetic and less fatigued today. She has been able to walk around and be OOB more than days prior. - Objective Vital Signs Temp Pulse Resp BP BP BP Pulse Ox 03/05/19 13:24 98.5 F 91 16 98/57 L 95 03/05/19 10:20 118/62 03/05/19 10:19 108 H 03/05/19 10:17 96 03/05/19 08:23 97.6 F 108 H 16 127/61 96 Weight 122 lb 1 oz 03/04/19 03/05/19 03/06/19 06:59 06:59 06:59 Intake Total 1340 2125 240 Output Total 2700 Balance 1340 -575 240 - Physical Examination General/Neuro: alert & oriented x3, NAD Neck: carotid US brisk, no JVD present Lungs: CTA, unlabored respirations Heart: PMI normal, other: (SR with frequent Bigeminy ) Abdomen: NT/ND, soft - Telemetry Telemetry Rhythm: SR with frequent bi/trigeminy - Labs Result Diagrams: 03/04/19 06:19 03/05/19 00:06 Troponin/CKMB CK-MB (CK-2) 1.3 ng/mL (0-6.6) 03/01/19 18:00 Troponin I 0.014 ng/mL (< 0.028) 03/05/19 00:06 - Assessment/Plan 1. Near syncopal spell. 2. Nonsustained ventricular tachycardia with very frequent monomorphic premature ventricular contractions as well. 3. Chronic systolic congestive heart failure with ischemic cardiomyopathy. a. Remote history of silent myocardial infarction. b. History of cardiomyopathy, even pre and post bypass surgery. c. History of coronary artery bypass graft surgery in 1997. d. Current left ventricular ejection fraction at 32% by echocardiogram this admission. 4. Hypertension. 5. Hyperlipidemia. 6. Mild diabetes. 7. Chronic sotalol use. - low dose, 40mg PO BID - Creat clearance 57mL/min (creat 0.69) -QT/QTc 354/447 ms by 12 lead on 03/01/19 Plan: Echo reveals EF is severely reduced at 30-35%. Plan for Dual chamber ICD implant tomorrow. [employer], continue low dose sotalol for now but considering dose increase after implant as she has a tendency towards bradycardia. She may eventually require PVC/VT ablation which can be discussed/arranged as OP.
[2019-03-05] MEDS: Fenofibrate Nanocrystallized 145 MG TAB PO SCH (20:14)
[2019-03-06] MEDS ORDERED: CEFAZOLIN 2 GM in Premix Bag 1 BAG IVPB SCH (03:00)
[2019-03-06 05:12] LABS: #Eosinphils 0.1 thou/uL (0.0-0.7); #Lymphocytes 1.5 thou/uL (1.20-3.40); #Monocytes 0.6 thou/uL (0.11-0.59); #Neutrophils 3.1 thou/uL (1.40-6.50); %Basophils 0.1 % (0.0-1.0); %Eosinophils 1.5 % (0.0-10.0); %Lymphocytes 27.8 % (21.0-51.0); %Monocytes 11.5 % (0.0-10.0); Hemoglobin 12.4 g/dL (12.0-16.0); Mean Corpuscular HGB CONC 33.8 g/dL (32.0-36.0); Mean Corpuscular Hemoglobin 29.6 pg (27.0-31.0); Mean Corpuscular Volume 87.7 fL (78.0-98.0); Mean Platelet Volume 8.8 fL (7.4-10.4); Platelet Count 193 thou/uL (130-400); RBC Distribution Width 13.5 % (11.5-14.5); Red Blood Cell (RBC) Count 4.17 mill/uL (4.20-5.40); White Blood Cell (WBC) Count 5.3 thou/uL (4.8-10.8)
[2019-03-06 05:33] LABS: Anion Gap 12 mmol/L (10-20); BUN (Urea Nitrogen) 16 mg/dL (9.8-20.1); Calc. Creatinine Clearance 54 mL/min (70-130); Calcium 9.6 mg/dL (7.8-10.44); Carbon Dioxide 26 mmol/L (23-31); Chloride 102 mmol/L (98-107); Estimated GFR-MDRD 76; Glucose 115 mg/dL (83-110); Potassium 3.6 mmol/L (3.5-5.1); Sodium 136 mmol/L (136-145)
[2019-03-06] MEDS: Sotalol HCl 80 MG TAB PO SCH ×2 (09:03→21:27)
[2019-03-06] MEDS: Lisinopril 20 MG TAB PO SCH ×2 (09:04→21:29)
[2019-03-06] MEDS: metFORMIN 500 MG TAB PO SCH ×2 (09:30→16:14)
[2019-03-06] MEDS: Aspirin 81 mg Enteric Coated Tablet PO SCH (09:51)
[2019-03-06] MEDS: Enoxaparin Sodium 40 MG/0.4 ML SYRINGE SC SCH (09:51)
--- NOTE | 2019-03-06 10:35 | PDOC.FM ---
- Subjective Subjective: PRABHAKAR overnight. Pt reports she feels great. She continues to remain in bigeminy. Plan for ICD placement today and further EP intervention as needed. - Objective MAR Reviewed: Yes Vital Signs & Weight: Vital Signs (12 hours) Temp Pulse Resp BP BP Pulse Ox 03/06/19 09:03 103 H 127/95 H 03/06/19 07:13 98.0 F 97 17 118/71 95 03/06/19 05:52 95 03/06/19 03:46 97.6 F 94 18 136/83 95 Weight Weight 55.423 kg I&O: 03/05/19 03/06/19 03/07/19 06:59 06:59 06:59 Intake Total 2125 1320 Output Total 2700 1950 Balance -575 -595 Result Diagrams: 03/06/19 04:33 03/06/19 04:33 Phys Exam - Physical Examination Constitutional: NAD HEENT: PERRLA, sclera anicteric Neck: no nodes, no JVD Respiratory: no wheezing, no rales, no rhonchi, clear to auscultation bilateral Cardiovascular: RRR, no significant murmur Gastrointestinal: soft, non-tender, no distention, positive bowel sounds Musculoskeletal: no edema, pulses present Neurological: non-focal, moves all 4 limbs Psychiatric: normal affect Skin: no rash Dx/Plan (1) Pre-syncope Status: Acute (2) CAD (coronary artery disease) Code(s): I25.10 - ATHSCL HEART DISEASE OF [place] CORONARY ARTERY W/O ANG PCTRS Status: Acute (3) DMII (diabetes mellitus, type 2) Status: Acute (4) Elevated brain natriuretic peptide (BNP) level Code(s): R79.89 - OTHER SPECIFIED ABNORMAL FINDINGS OF BLOOD CHEMISTRY Status : Acute (5) HLD (hyperlipidemia) Code(s): E78.5 - HYPERLIPIDEMIA, UNSPECIFIED Status: Acute (6) HTN (hypertension) Code(s): I10 - ESSENTIAL (PRIMARY) HYPERTENSION Status: Acute - Plan Plan: Pre-syncope - ICD placement today per EP - await recommendations indeterminate troponin resolved -resolved Elevated BNP -Ech showed EF 30-35%, pt will undergo EP prcedure today or tomorrow, will await recs - will need optimum medical therapy PT DC, await EP prcedure/recs - ICD placement today, await Cards/EP recs CAD - hx of, continue home medications HTN - monitor - cardiology consulted - cont home medications DMII - continue home meds - SSI, ACHS accu-checks Code: full PCP: ADELIA ppx: bipin dispo: Pt to have ICD placement per EP, await recommendations. Addendum - Attending - Attending Attestation Date/Time: 03/06/19 104 I personally evaluated the patient and discussed the management with Dr. Avalos. I agree with and the History, Examination, Assessment and Plan documented above with any addition or exceptions noted below.
[2019-03-06] MEDS ORDERED: Ondansetron PF 4 MG/2 ML Vial ONE (10:40)
[2019-03-06] MEDS ORDERED: PROPOFOL 200 MG/20 ML VIAL ONE (10:40)
[2019-03-06] MEDS ORDERED: Lidocaine 1% PF 5 ML VIAL ONE (10:40)
[2019-03-06] MEDS ORDERED: Iopamidol 370 76% 100 ML VIAL ONE (10:56)
[2019-03-06] MEDS ORDERED: Midazolam HCl 2 mg/2 ml Vial ONE (13:04)
[2019-03-06] MEDS ORDERED: Fentanyl 100 MCG/2 ML VIAL ONE (13:04)
[2019-03-06] MEDS ORDERED: ePHEDrine/0.9% NaCl/PF SYRINGE 50 mg/10 ml ONE (14:41)
--- NOTE | 2019-03-06 15:52 | RAD ---
AP CHEST: 03/06/19 HISTORY: Status post defibrillator placement. AICD leads are noted. The lungs are clear. No pneumothorax. Heart is upper normal size with postop st ernotomy changes. Dense aortic calcification. No evidence of vascular congestion or effusion. IMPRESSION: No acute process identified. POS: H
[2019-03-06] MEDS: Fenofibrate Nanocrystallized 145 MG TAB PO SCH (21:25)
--- NOTE | 2019-03-07 06:11 | PDOC.FM ---
- Subjective Subjective: Pt reports some soreness over the ICD placement. She denies dizziness when standing up. She reports she is ready to go. - Objective MAR Reviewed: Yes Vital Signs & Weight: Vital Signs (12 hours) Temp Pulse Resp BP BP BP Pulse Ox 03/07/19 03:16 97.5 F L 86 17 98/58 L 96 03/07/19 00:28 110/71 03/06/19 23:13 84/62 L 03/06/19 21:29 98/61 03/06/19 21:27 99 03/06/19 18:45 98.1 F 99 16 98/61 95 Weight Weight 55.61 kg I&O: 03/05/19 03/06/19 03/07/19 06:59 06:59 06:59 Intake Total 2125 1320 Output Total 2700 1950 Balance -575 -666 Result Diagrams: 03/06/19 04:33 03/06/19 04:33 Phys Exam - Physical Examination Constitutional: NAD HEENT: moist MMs Neck: no JVD ICD incision shows no signs of infection Respiratory: no wheezing, clear to auscultation bilateral Cardiovascular: RRR, no significant murmur Gastrointestinal: soft, non-tender, no distention Musculoskeletal: no edema, pulses present Neurological: moves all 4 limbs Psychiatric: A&O x 3 Skin: cap refill <2 seconds Dx/Plan (1) CAD (coronary artery disease) Code(s): I25.10 - ATHSCL HEART DISEASE OF [place] CORONARY ARTERY W/O ANG PCTRS Status: Acute (2) DMII (diabetes mellitus, type 2) Status: Acute (3) Elevated brain natriuretic peptide (BNP) level Code(s): R79.89 - OTHER SPECIFIED ABNORMAL FINDINGS OF BLOOD CHEMISTRY Status : Acute (4) Elevated troponin Code(s): R74.8 - ABNORMAL LEVELS OF OTHER SERUM ENZYMES Status: Acute (5) HLD (hyperlipidemia) Code(s): E78.5 - HYPERLIPIDEMIA, UNSPECIFIED Status: Acute (6) HTN (hypertension) Code(s): I10 - ESSENTIAL (PRIMARY) HYPERTENSION Status: Acute (7) Pre-syncope Status: Acute - Plan Plan: This is a 78 yo female with a pmh of HTN, CAD, DM2, HLD, HTN Pre-syncope -s/p ICD, likely DC home Elevated troponin, resolved Elevated BNP, HFrEF -ICD placement -Cards and EP recs CAD -continue home meds HTN -continue home meds DM2 -Continue home meds SSI, ACHS accu-checks Planning on discharging pt today Addendum - Attending - Attending Attestation Date/Time: 03/07/19 1605 I personally evaluated the patient and discussed the management with Dr. Bland I agree with the History, Examination, Assessment and Plan documented above with any addition or exceptions noted below.
[2019-03-07] MEDS: Lisinopril 20 MG TAB PO SCH (08:13)
[2019-03-07] MEDS: Aspirin 81 mg Enteric Coated Tablet PO SCH (08:13)
[2019-03-07] MEDS: metFORMIN 500 MG TAB PO SCH (08:13)
[2019-03-07] MEDS: Sotalol HCl 80 MG TAB PO SCH (08:14)
[2019-03-07 13:46] VITALS: BP 110/73; TEMP 97.3
--- NOTE | 2019-03-07 15:36 | EKG ---
Test Reason : Blood Pressure : / mmHG Vent. Rate : 096 BPM Atrial Rate : 096 BPM P-R Int : 188 ms QRS Dur : 124 ms QT Int : 354 ms P-R-T Axes : -22 -55 124 degrees QTc Int : 447 ms Sinus rhythm with frequent Premature ventricular complexes in a pattern of bigeminy Left anterior fascicular block Left ventricular hypertrophy with QRS widening and repolarization abnormality Anteroseptal infarct , age undetermined Abnormal ECG No ST elevation/[place] Confirmed by TEE DOSS M.D. ([id number]), advertising editor SHWETHA JANSEN ([id number]) on 03/07/2019 3:36:42 PM Referred By: Confirmed By:TEE DOSS M.D.
--- NOTE | 2019-03-07 18:57 | PDOC.CTH ---
Cardiology Progress Note - Subjective She arias her AICD placed yesterday and is doing well. - Objective Vital Signs Temp Pulse Resp BP BP BP BP 03/07/19 11:25 97.3 F L 69 18 110/73 03/07/19 08:14 93 03/07/19 08:13 98/61 03/07/19 08:09 104/58 L 127/76 03/07/19 08:05 03/07/19 08:04 97.8 F 93 20 128/80 Pulse Ox 03/07/19 11:25 95 03/07/19 08:14 03/07/19 08:13 03/07/19 08:09 03/07/19 08:05 95 03/07/19 08:04 96 Weight 122 lb 9.6 oz 03/06/19 03/07/19 03/08/19 06:59 06:59 06:59 Intake Total 1320 Output Total 1950 Balance -630 - Physical Examination General/Neuro: alert & oriented x3, NAD Neck: no JVD present Lungs: CTA, unlabored respirations Heart: RRR Abdomen: NT/ND Extremities: other: (no edema) - Telemetry Telemetry Rhythm: NSR, PAC's - Labs Result Diagrams: 03/06/19 04:33 03/06/19 04:33 Troponin/CKMB CK-MB (CK-2) 1.3 ng/mL (0-6.6) 03/01/19 18:00 Troponin I 0.014 ng/mL (< 0.028) 03/05/19 00:06 - Assessment/Plan 1. Presyncope. 2. Non sustained monomorphic VT 3. Ischemic CM EF at 30-35% 4. HTN 5. HLP 6. Type 2 DM 7. S/P AICD placement PLAN: - May discharge home. - Follow up with Dr. Maritnez and Dr. Vann.
--- NOTE | 2019-03-09 10:52 | PQF ---
ELVA EDWARDSLENNOX SAN [id number] [facility]-291 [id number] CLINICAL DOCUMENTATION CLARIFICATION FORM: POST DISCHARGE Addendum to original discharge summary date: ____ Late entry note date: __ DATE: 03/09/19 ATTN: Dr. Bland Please exercise your independent, professional judgment in responding to the clarification form. Clinical indicators are provided on the bottom of this form for your review Please check appropriate box(s): SYSTOLIC HEART FAILURE ACUITY [ ] Acute [ ] Acute on Chronic [ x ] Chronic [ ] Other diagnosis [ ] Unable to determine In addition, please specify: Present on Admission (POA): [ x ] Yes [ ] No [ ] Unable to determine For continuity of documentation, please document condition throughout progress notes and discharge summary. Thank You. CLINICAL INDICATORS - SIGNS / SYMPTOMS / LABS CHF exacerbation--03/03 ED note Ejection Fraction =30-35%--03/03 H&P Chronic systolic heart failure--03/03 Consult-Dr. Martinez SOB--03/05 Event progress note BNP elevated from proviously--BNP-639-03/01 labs, 977-03/05 labs CXR showing inc pulmonary vascular congestion--03/05 event progress note RISKS: CAD--03/03 H&P Hypertension--03/03 H&P TREATMENTS: 1 dose of Lasix, 40 mg IV--03/05 event progress note Cardiac monitoring / telemetry--03/03 H&P Continue home Lasix and adjust as needed--03/03 H&P AICD inserted 03/06/19 Thank you, Little Salcedo, [facility] 03/09/19@10:49PM (This form is maintained as a part of the permanent medical record) 2014 [employer]. All Rights Reserved Little [email or web address] [phone] JIM
== END 2019-03-07 15:51 | disposition home or self-care (01) | DRG 225 ==
LOC: ERS 17:40 → 2SW 20:20 → OBSVTOIN 03-03 15:14 → 2NO 03-03 18:37
PROVIDERS: ADMIT Student in an Organized Health Care Education/Training Program; ATTEND Student in an Organized Health Care Education/Training Program
PROC: 4A023N7 Measurement of Cardiac Sampling and Pressure, Left Heart, Percutaneous Approach (ICD-10-PCS; 2019-03-04)
PROC: B2131ZZ Fluoroscopy of Multiple Coronary Artery Bypass Grafts using Low Osmolar Contrast (ICD-10-PCS; 2019-03-04)
PROC: B2111ZZ Fluoroscopy of Multiple Coronary Arteries using Low Osmolar Contrast (ICD-10-PCS; 2019-03-04)
PROC: 0JH608Z Insertion of Defibrillator Generator into Chest Subcutaneous Tissue and Fascia, Open Approach (ICD-10-PCS; principal; 2019-03-06)
PROC: 02HK3KZ Insertion of Defibrillator Lead into Right Ventricle, Percutaneous Approach (ICD-10-PCS; 2019-03-06)
PROC: 02H63KZ Insertion of Defibrillator Lead into Right Atrium, Percutaneous Approach (ICD-10-PCS; 2019-03-06)
DX: I47.2 Ventricular tachycardia (principal); I50.22 Chronic systolic (congestive) heart failure; I25.10 Atherosclerotic heart disease of native coronary artery without angina pectoris; I25.5 Ischemic cardiomyopathy; I11.0 Hypertensive heart disease with heart failure; I77.1 Stricture of artery; E11.9 Type 2 diabetes mellitus without complications; E78.5 Hyperlipidemia, unspecified; I25.2 Old myocardial infarction; Z95.1 Presence of aortocoronary bypass graft; Z87.891 Personal history of nicotine dependence; Z79.899 Other long term (current) drug therapy; Z79.84 Long term (current) use of oral hypoglycemic drugs; Z79.82 Long term (current) use of aspirin; Z82.49 Family history of ischemic heart disease and other diseases of the circulatory system
CPT/HCPCS: 33249; 36005; 36415; 36416; 71045; 75820; 76942; 78452; 80048; 80053; 82553; 83605; 83880; 84484; 85025; 93005; 93010; 93017; 93306; 93459; 93641; 94760; 96374; 99152; 99153; A9500; C1721; C1769; C1777; C1898; J0153; J0360; J0690; J1644; J1650; J1940; J2001; J2250; J2405; J2704; J3010; J3490; Q9967